=== PATIENT | male | born 1980 | race Caucasian/White ===

== ENCOUNTER 2021-05-12 11:23 | Emergency (ER) | payer OTHER, SELFPAY ==
[2021-05-12 11:33] VITALS: BP 145/98; PULSE 97; RESP 16; TEMP 36.6; O2SAT 100
--- NOTE | 2021-05-12 11:40 | ED.URI ---
HPI - URI/Sore Throat General Chief Complaint: Upper Respiratory Infection Stated Complaint: dizzy cough Time Seen by Provider: 05/12/21 11:40 Source: patient, RN notes reviewed and old records reviewed Mode of arrival: ambulatory Limitations: no limitations History of Present Illness HPI Narrative: 40 year old male who presents to [facility] care with complaints of 2 day history of feeling fatigued. Today he has experienced some cough, mild headache and also feeling dizzy. Patient reports that his dizziness is with position changes and it is also making him feel a little nauseated. Patient denies any fevers, chills or sweats or body aches. He reports that he has had Covid immunizations and Booster but no flu shot this year. Patient does not have physician in area moved back to [facility] from [place].Patient reports history of seasonal allergies and reports he takes daily MD Estuardo elicited complaint: cough and other (dizziness) Pertinent past history: seasonal allergies Onset (ago): day(s) (2) Related Data Allergies Allergy/AdvReac Type Severity Reaction Status Date / Time No Known Drug Allergies Allergy Mild Verified 03/08/10 13:59 Review of Systems Review of Systems: CONSTITUTIONAL: Denies fever, chills, or sweats. EYES: Denies visual changes, redness, or discharge. ENT: Some clear rhinorrhea, mild congestion, no sore throat, or otalgia. CARDIOVASCULAR: Denies chest pain, palpitations, or edema. RESPIRATORY: Occasional dry cough denies any dyspnea. GASTROINTESTINAL: Denies abdominal pain, occasional nausea with dizziness, no vomiting, or diarrhea. GENITOURINARY: Denies dysuria or hematuria. SKIN: Denies rash or itching. MUSCULOSKELETAL: Denies back pain, joint pain, or myalgia. NEUROLOGIC: Positive for mild headache, no numbness, or weakness.generalized feelings of fatigue and some dizziness with position changes PSYCHIATRIC: Denies anxiety or depression. All systems reviewed & are unremarkable except as noted in HPI and below PMFSH Past Medical History Medical History (Updated 05/12/21 @ 12:12 by Sarah Brown NP) Seasonal allergies Surgical History Surgical History (Updated 05/12/21 @ 12:12 by Sarah Brown NP) No history of previous surgery Family History Family History (Updated 05/12/21 @ 12:12 by Sarah Brown NP) Other No significant family history Social History Social History (Updated 05/12/21 @ 12:13 by Sarah Brown NP) Smoking status: Never smoker Alcohol intake: current Alcohol use details: social Substance use: never Living arrangements: with family Gender identity (if verbalized by the patient): Male Comments At time of signature, agree with nursing past medical, surgical, social and family history. There is no relevant family history pertinent to the presenting complaint Exam Narrative: GENERAL: Well-appearing, well-nourished, and in no acute distress. HEAD: Normocephalic, atraumatic. EYES: PERRLA and EOMI. ENT: Nares pale and boggy, clear rhinorrhea no epistaxis. Mucous membranes moist.TM's normal with good light reflex, throat pink with no lesions or exudates or tonsil enlargement uvula midline with some clear post nasal drainage noted. NECK: Supple. no lymphadenopathy CHEST: Clear to auscultation. No respiratory distress.no tachypnea, SAO2 100% on room air HEART: Regular rate and rhythm. No murmur heard. Normal peripheral pulses. ABDOMEN: Soft, nontender, nondistended, normal active bowel sounds. EXTREMITIES: Normal range of motion. No edema. SKIN: Warm, dry, no rash. NEURO: No focal deficits. Alert and oriented x3. Course Course Level of Care: Express Care Visit Vital Signs Vital signs: Vital Signs Temperature 36.6 C 05/12/21 11:33 Pulse Rate 97 05/12/21 11:33 Respiratory Rate 16 05/12/21 11:33 Blood Pressure 145/98 H 05/12/21 11:33 Pulse Oximetry 100 05/12/21 11:33 Temperature 36.6 C 05/12/21 11:33 Pulse Rate 97 05/12/21 1
[2021-05-12 12:19] VITALS: BP 144/88
== END 2021-05-12 12:13 | disposition home or self-care (01) ==
PROVIDERS: Emergency Provider Registered Nurse
DX: R42 Dizziness and giddiness (principal); J06.9 Acute upper respiratory infection, unspecified; Z20.822 Contact with and (suspected) exposure to COVID-19
CPT/HCPCS: 87426; 87804; 99213; C9803; G0463

== ENCOUNTER 2022-11-12 09:08 | Outpatient (CLI) | payer OTHER, SELFPAY ==
[2022-11-12 13:05] LABS: Basophils Absolute Auto 0.1 K/mm3 (0.0-0.1); Basophils Percent Auto 1.4 % (0.2-1.2); Eosinophils Absolute Auto 0.2 K/mm3 (0-0.3); Eosinophils Percent Auto 4.5 % (0-4.4); Hematocrit 45.7 % (42.0-52.0); Hemoglobin 14.9 g/dL (14.0-18.0); Immature Granulocyte Absolute 0.03 K/mm3 (0.00-0.031); Immature Granulocyte Percent A 0.6 % (0-0.5); Lymphocytes Absolute Auto 1.79 K/mm3 (0.9-3.2); Lymphocytes Percent Auto 35.3 % (18.3-44.2); Mean Corpuscular HGB Conc 32.6 g/dl (32-36); Mean Corpuscular Volume 95.2 fl (80-100); Mean Platelet Volume 12.9 fl (7.4-10.4); Monocytes Absolute Auto 0.7 K/mm3 (0.1-0.6); Neutrophils Absolute Auto 2.2 K/mm3 (1.3-6.7); Neutrophils Percent Auto 44.2 % (45.5-73.1); Platelet Count Result 187 k/mm3 (150-375); Red Cell Distribution Width 12.1 % (11.5-14.5); White Blood Count 5.1 K/mm3 (4.5-10.0)
[2022-11-12 13:18] LABS: Alanine Aminotransferase 28 U/L (6-50); Albumin Level 4.3 g/dL (3.5-5.1); Alkaline Phosphatase 54 U/L (38-126); Anion Gap 7 mmol/L (8-16); Aspartate Amino Transferase 48 U/L (17-59); Bilirubin,Total 0.8 mg/dL (0.2-1.3); Blood Urea Nitrogen 14 mg/dL (9-20); Calcium 9.2 mg/dL (8.4-10.2); Carbon Dioxide 30 mmol/L (22-30); Chloride 101 mmol/L (98-107); Cholesterol 224 mg/dL (0-200); Estimated Glomerular Filt Rate > 60; Glucose 93 mg/dL (65-110); HDL Direct 81 mg/dL; Potassium 4.5 mmol/L (3.4-5.0); Sodium 138 mmol/L (137-145); Triglycerides 44 mg/dL (<150)
[2022-11-12 13:29] LABS: LDL Cholesterol Direct 100 mg/dL
[2022-11-12 15:23] LABS: Hemoglobin A1C 5.4 % (<5.7)
== END 2022-11-12 09:09 | disposition home or self-care (01) ==
LOC: ANHGOSHLAB 09:10
PROVIDERS: PCP Emergency Medicine; Visit Provider Emergency Medicine
DX: Z00.00 Encounter for general adult medical examination without abnormal findings (principal)
CPT/HCPCS: 36415; 80053; 80061; 83036; 85025